=== PATIENT | male | born 1955 ===

== ENCOUNTER 2021-08-01 08:30 | Outpatient (CLI) | payer OTHER | END 2021-08-01 08:45 | disposition home or self-care (01) | LOC: PPH VACUNA 08:30 | PROVIDERS: ATTEND Emergency Medicine Pediatric Emergency Medicine | DX: Z23 Encounter for immunization (principal) ==

== ENCOUNTER 2022-03-02 10:00 | Outpatient (CLI) | payer OTHER | END 2022-03-02 10:30 | disposition home or self-care (01) | LOC: PPH VACUNA 10:00 | PROVIDERS: ATTEND Emergency Medicine Pediatric Emergency Medicine | DX: Z23 Encounter for immunization (principal) ==